=== PATIENT | male | born 1995 | race Two or more races ===

== ENCOUNTER 2025-02-02 12:16 | Inpatient (IN) | payer MEDICAID, OTHER ==
[~2025-02-02] VITALS: Ht 162.6 cm; Wt 65.9 kg
--- NOTE | 2025-02-02 13:19 | ED.PDOC ---
History of Present Illness HPI Comments 29-year-old male who is [place]ian-speaking presents to the ER chief complaint of a GI bleed. Patient reports that he was a heavy alcohol user currently in alcohol recovery program. Patient states on having bright red stool this morning. Patient states that there was a lot. Denies any other symptoms at this time. Denies chills, fever, N/V/D, SOB, CP. No other associated symptoms, modifiers, recent injuries or sick contacts present at this time. Chief Complaint: GI Bleed Time Seen by MD: 13:15 Reviewed Notes: Nurses Notes, Medications, Allergies Allergies: Coded Allergies: NO KNOWN ALLERGIES (Unverified , 02/02/25) Information Source: Patient Mode of Arrival: Ambulatory Severity: Moderate Timing: Hours Duration: Since onset, Hours Prehospital treatment: None Past Medical History PAST MEDICAL HISTORY: Denies Surgical History: Denies all surgeries Family History Family History: Reviewed,noncontributory to illness, Unknown Social History Smoker: Non-Smoker Alcohol: Sober Drugs: Denies Drug Use Lives In: Home Constitutional: denies: chills, diaphoresis, fatigue, fever, malaise, sweats, weakness, others EENTM: denies: blurred vision, double vision, ear bleeding, ear discharge, ear drainage, ear pain, ear ringing, eye pain, eye redness, hearing loss, mouth pain, mouth swelling, nasal discharge, nose bleeding, nose congestion, nose pain, photophobia, tearing, throat pain, throat swelling, voice changes, others Respiratory: denies: cough, hemoptysis, orthopnea, SOB at rest, shortness of breath, SOB with excertion, stridor, wheezing, others Cardiovascular: denies: chest pain, dizzy spells, diaphoresis, Dyspnea on exertion, edema, irregular heart beat, left arm pain, lightheadedness, palpitations, PND, syncope, others Gastrointestinal: reports: rectal bleeding (Bright red); denies: abdomen distended, abdominal pain, blood streaked bowels, constipated, diarrhea, dysphagia, difficulty swallowing, hematemesis, melena, nausea, poor appetite, poor fluid intake, rectal pain, vomiting, others Genitourinary: denies: burning, dysuria, flank pain, frequency, hematuria, incontinence, penile discharge, penile sore, pain, testicle pain, testicle swell ing, urgency, others Neurological: denies: dizziness, fainting, headache, left sided numbness, left sided weakness, numbness, paresthesia, pre-existing deficit, right sided numbness, right sided weakness, seizure, speech problems, tingling, tremors, weakness, others Musculoskeletal: denies: back pain, gout, joint pain, joint swelling, muscle pain, muscle stiffness, neck pain, others Integumetry: denies: bruises, change in color, change in hair/nails, dryness, laceration, lesions, lumps, rash, wounds, others Allergic/Immunocompromised: denies: Difficulty Healing, Frequent Infections, Hives, Itching, others Hematologic/Lymphatic: denies: anemia, blood clots, easy bleeding, easy bruising, swollen glands, others Endocrine: denies: excessive hunger, excessive sweating, excessive thirst, excessive urination, flushing, intolerance to cold, intolerance to heat, unexplained weight gain, unexplained weight loss, others Psychiatric: denies: anxiety, bipolar disorder, depression, hopeless, panic disorder, schizophrenia, sleepless, suicidal, others All Other Systems: Reviewed and Negative Physical Exam General Appearance: Moderate Distress, Normal HEENT: Normal ENT Inspection, Pharynx Normal, TMs Normal Neck: Full Range of Motion, Non-Tender, Normal, Normal Inspection Respiratory: Chest Non-Tender, Lungs Clear, No Accessory Muscle Use, No Respiratory Distress, Normal Breath Sounds Cardiovascular: No Edema, No JVD, No Murmur, No Gallop, Normal Peripheral Pulses, Regular Rate/Rhythm Breast Exam: Deferred Gastrointestinal: No Organomegaly, Non Tender, No Pulsatile Mass, Normal Bowel Sounds, Soft Genitalia: Deferred Pelvic: Deferred Rectal: Deferred Extremities: No calf tenderness, Normal capillary refill, Normal inspection, Normal range of motion, Non-tender, No pedal edema Musculoskeletal : Apperance: Normal Neurologic: Alert, natural resources extension educator II-XII nml as Tested, No Motor Deficits, Normal Affect, Normal Mood, No Sensory Deficits Cerebellar Function: Normal Reflexes: Normal Skin: Dry, Normal Color, Warm Peripheral Pulses: 3+ Radial (R), 3+ Radial (L) Lymphatic: No Adenopathy Was a procedure done? Was a procedure done?: No Differential Dx Considerations may include: Anemia Electrolyte imbalance X-Ray, Labs, Meds, VS Vital Signs Date Time Temp Pulse Resp B/P (MAP) Pulse Ox O2 Delivery O2 Flow Rate FiO2 02/02/25 15:23 98.0 74 18 122/67 (85) 98 98.0 02/02/25 12:18 98.2 83 15 134/66 98 98.2 Lab Test 02/02/25 13:45 Range/Units White Blood Count 6.8 4.4-10.8 10^3/uL Red Blood Count 5.77 4.5-5.90 10^6/uL Hemoglobin 17.6 H 13.5-17.5 g/dL Hematocrit 51.0 41.0-53.0 % Mean Corpuscular Volume 88.4 80.0-100.0 fL Mean Corpuscular Hemoglobin 30.6 28.0-32.0 pg Mean Corpuscular Hemoglobin Concent 34.6 32.0-36.0 g/dL Red Cell Distribution Width 12.8 11.8-14.3 % Platelet Count 311 140-450 10^3/uL Mean Platelet Volume 7.9 6.9-10.8 fL Neutrophils (%) (Auto) 57.2 37.0-80.0 % Lymphocytes (%) (Auto) 30.1 10.0-50.0 % Monocytes (%) (Auto) 10.5 0.0-12.0 % Eosinophils (%) (Auto) 1.4 0.0-7.0 % Basophils (%) (Auto) 0.8 0.0-2.0 % Neutrophils # (Auto) 3.9 1.6-8.6 10 ^3/uL Lymphocytes # (Auto) 2.0 0.4-5.4 10 ^3/uL Monocytes # (Auto) 0.7 0-1.3 10 ^3/uL Eosinophils # (Auto) 0.1 0-0.8 10 ^3/uL Basophils # (Auto) 0.1 0-0.2 10 ^3/uL Nucleated Red Blood Cells 0.1 % Sodium Level 141 136-145 mmol/L Potassium Level 4.5 3.5-5.1 mmol/L Chloride Level 103 98-107 mmol/L Carbon Dioxide Level 30 20-31 mmol/L Anion Gap 8 5-15 Blood Urea Nitrogen 10 9-23 mg/dL Creatinine 0.93 0.700-1.30 mg/dL Glomerular Filtration Rate Calc 115 >90 mL/min BUN/Creatinine Ratio 10.8 10.0-20.0 Serum Glucose 93 74-106 mg/dL Calcium Level 10.1 8.7-10.4 mg/dL Current Medications Medications (Trade) Dose Ordered Sig/Lokesh Route Start Time Stop Time Status Last Admin Sodium Chloride 1,000 ml @ 1,000 mls/hr Q1H ONCE IV 02/02/25 13:30 02/02/25 14:29 DC 02/02/25 14:52 Sodium Chloride 1,000 ml @ 150 mls/hr Q6H40M ONCE IV 02/02/25 13:30 02/02/25 20:09 02/02/25 14:53 Patient alert. Complaining of bleeding per rectum. Vitals stable. Answering questions. Establish intravenous access. Was given fluids. WBC within normal limits. Hematocrit within normal limits. Explained to the patient. Continue monitoring. Time of 1ST Reevaluation: 13:45 Reevaluation 1ST: Unchanged Patient Education/Counseling: Diagnosis, Treatment, Prognosis Family Education/Counseling: No Family Present SEPSIS Sepsis Screen Date sepsis recognized/suspect: Feb 02, 2025 Time Sepsis recognized/suspect: 0 Recent Procedure: No On Antibiotic Therapy: No Respiratory Rate >20: No Heart Rate >90: No Temp<36 C (96.8 F) or >38.3 C: No SBP <90 or MAP <65 mmHG: No New Acute Mental Status Change: No Is the patient on CPAP, BIPAP,: No Physician Orders Urinalysis (02/02/25 13:26) Sodium Chloride 0.9% (02/02/25 13:30) Vital Signs Date Time Temp Pulse Resp B/P (MAP) Pulse Ox O2 Delivery O2 Flow Rate FiO2 02/02/25 15:23 98.0 74 18 122/67 (85) 98 98.0 02/02/25 12:18 98.2 83 15 134/66 98 98.2 Laboratory Tests Test 02/02/25 13:45 White Blood Count 6.8 10^3/uL (4.4-10.8) Medications Medications Dose Ordered Sig/Lokesh Route Start Time Stop Time Status Last Admin Dose Admin Sodium Chloride 1,000 ml @ 150 mls/hr Q6H40M ONCE IV 02/02/25 13:30 02/02/25 20:09 02/02/25 14:53 Sodium Chloride 1,000 ml @ 1,000 mls/hr Q1H ONCE IV 02/02/25 13:30 02/02/25 14:29 DC 02/02/25 14:52 Departure 1 Departure Time of Disposition: 15:48 Impression: Primary Impression: GI bleed Qualified Codes: K92.2 - Gastrointestinal hemorrhage, unspecified Disposition: ADMITTED INPATIENT Admit to: Med Surg Condition: Guarded Critical Care Note Critical Care Time?: No Stability Stability form required: No Heart Score Heart Score: Heart Score Response (Comments) Value History N/A 0 EKG N/A 0 Age N/A 0 Risk Factors N/A 0 Troponin N/A 0 Total 0 I personally scribed for RISA LALA MD ([email or web address]) on 02/02/25 at 13:19. Electronically submitted by Abe Fink ([email or web address]). RISA LALA MD Feb 02, 2025 13:19
[2025-02-02 14:20] LABS: Hematocrit 51.0 % (41.0-53.0); Hemoglobin 17.6 g/dL (13.5-17.5); Mean Corpuscular Hemoglobin 30.6 pg (28.0-32.0); Mean Corpuscular Volume 88.4 fL (80.0-100.0); Nucleated Red Blood Cells % 0.1 %
[2025-02-02 14:27] LABS: Chloride 103 mmol/L (98-107); Potassium 4.5 mmol/L (3.5-5.1); Sodium 141 mmol/L (136-145)
[2025-02-02 14:28] LABS: Anion Gap 8 (5-15); Carbon Dioxide 30 mmol/L (20-31)
[2025-02-02 14:29] LABS: Calcium 10.1 mg/dL (8.7-10.4)
[2025-02-02 14:33] LABS: Glucose 93 mg/dL (74-106)
[2025-02-02 14:34] LABS: BUN/Creatinine Ratio 10.8 (10.0-20.0); Blood Urea Nitrogen 10 mg/dL (9-23)
[2025-02-02] MEDS: SODIUM CHLORIDE 0.9% 1,000 ML IV ONE ×2 (14:52→14:53)
[2025-02-02 16:10] LABS: Urine Protein, UAD Negative (Negative)
--- NOTE | 2025-02-02 16:27 | DVHHP2 ---
History of Present Illness History of Present Illness Patient is 29 years old male with a history of severe alcoholism, on recommended program, last drinking 3 weeks before not on any medication came with a complaint of per rectal bleeding. As per patient he started having per rectal bleeding after bowel movement today which happened twice around 10:00 a.m. in the morning today. Patient reported amphetamine improved had blood also was dribbling after popping. Patient also reported having abdominal pain for last 2 days, gradual onset, 01/28, no aggravating or relieving factor. Patient reported also having vomiting once, no blood, watery content. On further inquiry patient also reported dysuria for last 2 weeks. Patient denied any fever, acute joint pain or swelling, chest pain no shortness of breaths. Initial lab workup revealed hemoglobin 17.6. Urinalysis negative for UTI. PMH-history of alcohol abuse PSH- none Family history done Allergy- NKDA Personal History/ Social History- smokes 2-3 cigarettes per day, ex alcoholic, last alcohol drink 3 weeks before, occasional use marijuana, last use couple of weeks before. Review of Systems Review of Systems Cardiovascular- deny acute chest pain or shortness of breath or cough or palpitation Respiratory denies cough or short of breath or wheezing Musculoskeletal-denies acute joint swelling or tenderness or redness Neurological- denies acute dysarthria, dysphagia, change in vision Psychiatry- denies depression or SI or HI Skin- denies acute rash or purpura Allergies: Coded Allergies: NO KNOWN ALLERGIES (Unverified , 02/02/25) Medications Current Medications Medications Dose Ordered Sig/Lokesh Route Start Time Stop Time Status Last Admin Dose Admin Sodium Chloride 1,000 ml @ 120 mls/hr Q8H20M IV 02/02/25 16:30 UNV Exam Vital Signs Vital Signs Date Time Temp Pulse Resp B/P (MAP) Pulse Ox O2 Delivery O2 Flow Rate FiO2 02/02/25 15:23 98.0 74 18 122/67 (85) 98 98.0 Exam General examination- HEENT- PEERLA, no acute nasal discharge Cardiovascular- S1-S2 audible, rate and rhythm regular, no murmur Respiratory- CTAB, no wheeze or rhonchi Gastrointestinal-nontender, bowel sound+. Nondistended Musculoskeletal-no acute joint swelling or tenderness or redness Digital rectal examination was attempted in presence of delon Ferrell, no external hemorrhoids, could not complete the AKASH due to patient feeling pain. Lower extremity- no leg edema Neurological- cranial nerves intact, no acute dysarthria or dysphagia Psychiatry- denies depression or SI or HI Skin- no acute rash or purpura Labs/Xrays Labs Test 02/02/25 15:54 02/02/25 13:45 Range/Units Urine Color Light-yellow Yellow Urine Clarity Clear Clear Urine pH 7.5 5.0-9.0 Urine Specific [place] 1.015 1.001-1.035 Urine Protein Negative Negative Urine Ketones Negative Negative Urine Blood Negative Negative /uL Urine Nitrite Negative Negative Urine Bilirubin Negative Negative Urine Urobilinogen Normal Negative mg/dL Urine Leukocyte Esterase Negative Negative /uL Urine RBC 1 0 - 3 /hpf Urine Microscopic WBC < 1 0-3 /HPF Urine Squamous Epithelial Cells None seen <5 /hpf Urine Bacteria None seen None Seen /hpf Urine Glucose Normal Normal mg/dL White Blood Count 6.8 4.4-10.8 10^3/uL Red Blood Count 5.77 4.5-5.90 10^6/uL Hemoglobin 17.6 H 13.5-17.5 g/dL Hematocrit 51.0 41.0-53.0 % Mean Corpuscular Volume 88.4 80.0-100.0 fL Mean Corpuscular Hemoglobin 30.6 28.0-32.0 pg Mean Corpuscular Hemoglobin Concent 34.6 32.0-36.0 g/dL Red Cell Distribution Width 12.8 11.8-14.3 % Platelet Count 311 140-450 10^3/uL Mean Platelet Volume 7.9 6.9-10.8 fL Neutrophils (%) (Auto) 57.2 37.0-80.0 % Lymphocytes (%) (Auto) 30.1 10.0-50.0 % Monocytes (%) (Auto) 10.5 0.0-12.0 % Eosinophils (%) (Auto) 1.4 0.0-7.0 % Basophils (%) (Auto) 0.8 0.0-2.0 % Neutrophils # (Auto) 3.9 1.6-8.6 10 ^3/uL Lymphocytes # (Auto) 2.0 0.4-5.4 10 ^3/uL Monocytes # (Auto) 0.7 0-1.3 10 ^3/uL Eosinophils # (Auto) 0.1 0-0.8 10 ^3/uL Basophils # (Auto) 0.1 0-0.2 10 ^3/uL Nucleated Red Blood Cells 0.1 % Sodium Level 141 136-145 mmol/L Potassium Level 4.5 3.5-5.1 mmol/L Chloride Level 103 98-107 mmol/L Carbon Dioxide Level 30 20-31 mmol/L Anion Gap 8 5-15 Blood Urea Nitrogen 10 9-23 mg/dL Creatinine 0.93 0.700-1.30 mg/dL Glomerular Filtration Rate Calc 115 >90 mL/min BUN/Creatinine Ratio 10.8 10.0-20.0 Serum Glucose 93 74-106 mg/dL Calcium Level 10.1 8.7-10.4 mg/dL SEPSIS Sepsis Screen Date sepsis recognized/suspect: Feb 02, 2025 Time Sepsis recognized/suspect: 1219 Recent Procedure: No On Antibiotic Therapy: No Respiratory Rate >20: No Heart Rate >90: No Temp<36 C (96.8 F) or >38.3 C: No SBP <90 or MAP <65 mmHG: No New Acute Mental Status Change: No Is the patient on CPAP, BIPAP,: No Physician Orders Sodium Chloride 0.9% (02/02/25 13:30) Admit (02/02/25 16:17) Code Status (02/02/25 16:17) Sodium Chloride 0.9% (02/02/25 16:30) Complete Blood Count (02/03/25 04:00) Comprehensive Metabolic Panel (02/03/25 04:00) Npo (Nothing By Mouth) Diet (02/02/25 Dinner) Notify Md Of Changes From Base (02/02/25 16:17) Vital Signs Date Time Temp Pulse Resp B/P (MAP) Pulse Ox O2 Delivery O2 Flow Rate FiO2 02/02/25 15:23 98.0 74 18 122/67 (85) 98 98.0 02/02/25 12:18 98.2 83 15 134/66 98 98.2 Laboratory Tests Test 02/02/25 13:45 White Blood Count 6.8 10^3/uL (4.4-10.8) Medications Medications Dose Ordered Sig/Lokesh Route Start Time Stop Time Status Last Admin Dose Admin Sodium Chloride 1,000 ml @ 150 mls/hr Q6H40M ONCE IV 02/02/25 13:30 02/02/25 20:09 02/02/25 14:53 150 MLS/HR Sodium Chloride 1,000 ml @ 1,000 mls/hr Q1H ONCE IV 02/02/25 13:30 02/02/25 14:29 DC 02/02/25 14:52 1,000 MLS/HR Assessment/Plan Assessment/Plan Assessment and plan # acute GI bleeding under evaluation # rectal bleeding # suspected gastroenteritis/colitis # transaminitis -NPO -ordered IV fluid -ordered pantoprazole -ordered ceftriaxone and metronidazole -ordered CT abdomen and pelvis with contrast both oral and IV ordered -ordered hepatic panel -ordered GI consult # dysuria under evaluation -ordered urinalysis -continue current antibiotic # history of alcoholism Ordered blood alcohol level # history of substance abuse -ordered UDS Goals of care, Code status full code ; discussed with >15 minutes PUD prophylaxis: Pantoprazole DVT prophylaxis: Patient ambulating Plan discussed with Dr. Molina , nursing staff, Total time spent on patient evaluation, chart review, assessment and plan, discussion discussion >35 minutes Plan discussed with: Patient, Other (RN) My Orders Orders - ANGELES SMALL Procedure Category Date Status Time Admit ADMIT 02/02/25 Transmitted 16:17 Code Status CODE 02/02/25 Transmitted 16:17 Sodium Chloride 0.9% PHA 02/02/25 Logged 16:30 Complete Blood Count LAB 02/03/25 Verified 04:00 Comprehensive LAB 02/03/25 Verified Metabolic Panel 04:00 Npo (Nothing By DIET 02/02/25 Transmitted Mouth) Diet Dinner Notify Of Changes HOLLY 02/02/25 In Process From Base 16:17 Date of Service: Feb 02, 2025 Billing Provider: XU MOLINA MD Common Visit Codes: 04013-VFKOHIP INP/OBS CARE (HIGH) Secondary Visit Codes: 82680-[id number] CARE PLAN 30 MINUTES ANGELES SMALL Feb 02, 2025 16:27
[2025-02-02] MEDS: LACTATED RINGER'S 1,000 ML IV ONE (16:30)
[2025-02-02] MEDS ORDERED: SODIUM CHLORIDE 0.9% 1,000 ML IV SCH (16:30)
--- NOTE | 2025-02-02 16:57 | DVH ---
CHEST RADIOGRAPH Indication: Rule out pneumonia Technique: XY CHEST XRAY 1 VIEW Comparison: None FINDINGS: The cardiac silhouette is unremarkable. The lungs demonstrate no pulmonary airspace consolidation. Th e pulmonary vasculature is unremarkable. There is no pleural effusion. There is no pneumothorax. IMPRESSION: No pulmonary airspace consolidation.
[2025-02-02 17:05] LABS: INR 0.97 (0.9-1.15); Partial Thromboplastin Time 29.7 SEC (24.5-34.5); Prothrombin Time 10.3 sec (9.3-11.8)
[2025-02-02] MEDS: OMNIPAQUE 12mg/ml 500ml ORAL SOLUTION PO ONE (17:14)
[2025-02-02 17:25] LABS: Albumin 4.6 g/dL (3.2-4.8); Bilirubin, Total 0.4 mg/dL (0.2-1.0); Total Protein 7.4 g/dL (5.7-8.2)
[2025-02-02 18:05] LABS: Alanine Aminotransferase 116 U/L (7-40); Alkaline Phosphatase 147 U/L (46-116); Bilirubin, Direct < 0.1 mg/dL (<0.3)
[2025-02-02 18:05] LABS: Amphetamine Screen, Urine Neg (NEGATIVE); Barbiturate Scree,Urine Neg (NEGATIVE); Benzodiazephine Screen, Urine Neg (NEGATIVE); Cannabinoid Screen, Urine Neg (NEGATIVE); Cocaine Screen, Urine Neg (NEGATIVE); Opiate Scree,Urine Neg (NEGATIVE); Phencyclidine Screen, Urine Neg (NEGATIVE)
[2025-02-02 21:00] VITALS: BP 118/75; PULSE 70; RESP 15; TEMP 98.2; O2SAT 97
[2025-02-02 21:04] VITALS: BP 118/75; PULSE 68; PULSE 70; RESP 14; RESP 15; TEMP 98.2; O2SAT 97; O2SAT 98
[2025-02-02] MEDS: IOHEXOL 300 MG/ML 100ML BOTTLE IJ ONE (21:10)
[2025-02-02] MEDS: PANTOPRAZOLE 40 MG/10 ML VIAL INJ IV SCH (22:10)
--- NOTE | 2025-02-02 22:34 | DVH ---
CLINICAL HISTORY: GI bleeding TECHNIQUE: CT of the abdomen and pelvis was performed with intravenous contrast. 100 mL Omnipaque 300 injected 500 mL omnipaque 350 ingested orally. This exam was performed according to our departmental dose optimization program. Up-to-date CT equipment and radiation dose reduction techniques are utili zed as appropriate. 7.46 CTDIVol: 7.46 mGy DLP: 453.20 mGy-cm WID: COMPARISON: None FINDINGS: Lower Thorax: Unremarkable. Liver and Biliary system: Mild hepatomegaly measuring 20 cm craniocaudal. There is mild hepatic steat osis. No discrete hepatic lesion. Major portal veins are patent. Gallbladder is normal caliber. Ther e is no biliary ductal dilatation. Spleen: Unremarkable. Adrenal Glands and Kidneys: Normal adrenal glands. Asymmetric atrophy and smaller size of the right k idney with multifocal right renal cortical scarring. There is no hydronephrosis or nephrolithiasis. T iny hypodensity in the upper pole left kidney too small to characterize though may reflect a cyst. Pancreas and Retroperitoneum: Unremarkable. Aorta and Major Vessels: Unremarkable. Bowel, Mesentery and Peritoneal space: Normal caliber small and large bowel. There is contrast opacif ication of predominantly right abdominal small bowel loops. No free intraperitoneal air or fluid geovanna ection. Mild wall thickening of the rectum. Pelvis: Unremarkable. Abdominal wall and Osseous Structures: Tiny sclerotic foci in the proximal femurs and pelvis likely b [place]. No destructive osseous lesion. IMPRESSION: 1. Mild wall thickening of the rectum which may be in part due to underdistention versus mild proctit is. 2. No bowel obstruction, fluid collection, or free air. 3. Mild hepatomegaly with mild hepatic steatosis. 4. Asymmetric atrophy of the right kidney with multifocal right renal cortical scarring.
[2025-02-02 23:28] LABS: Hematocrit 44.2 % (41.0-53.0); Hemoglobin 15.5 g/dL (13.5-17.5)
[2025-02-03] VITALS (9 sets, daily range): BP systolic 94–109; BP diastolic 55–70; PULSE 52–84; RESP 14–18; TEMP 97.3–98.6; O2SAT 92–97
[2025-02-03 05:48] LABS: Hematocrit 46.3 % (41.0-53.0); Hemoglobin 16.2 g/dL (13.5-17.5); Mean Corpuscular Hemoglobin 30.7 pg (28.0-32.0); Mean Corpuscular Volume 87.7 fL (80.0-100.0); Nucleated Red Blood Cells % 0.0 %
[2025-02-03] MEDS: SODIUM CHLORIDE 0.9% 500 ML IV ONE (05:52)
[2025-02-03 06:09] LABS: Albumin 3.9 g/dL (3.2-4.8); Alkaline Phosphatase 116 U/L (46-116); Anion Gap 10 (5-15); BUN/Creatinine Ratio 8.6 (10.0-20.0); Calcium 9.4 mg/dL (8.7-10.4); Carbon Dioxide 27 mmol/L (20-31); Chloride 105 mmol/L (98-107); Glucose 93 mg/dL (74-106); Potassium 3.7 mmol/L (3.5-5.1); Sodium 142 mmol/L (136-145); Total Protein 6.4 g/dL (5.7-8.2)
[2025-02-03 06:10] LABS: Alanine Aminotransferase 88 U/L (7-40); Bilirubin, Total 0.8 mg/dL (0.2-1.0); Blood Urea Nitrogen 7 mg/dL (9-23)
--- NOTE | 2025-02-03 08:59 | DVHPNRES ---
Progress Note Date Seen: Feb 03, 2025 Resident Creating Document: ANGELES SMALL RESIDENT Medical Necessity Reason Pt with a Central, PICC or Fol: No Subjective Review of Systems Patient is 29 years old male with a history of severe alcoholism, on recommended program, last drinking 3 weeks before not on any medication came with a complaint of per rectal bleeding. As per patient he started having per rectal bleeding after bowel movement today which happened twice around 10:00 a.m. in the morning today. Patient reported amphetamine improved had blood also was dribbling after popping. Patient also reported having abdominal pain for last 2 days, gradual onset, 01/28, no aggravating or relieving factor. Patient reported also having vomiting once, no blood, watery content. On further inquiry patient also reported dysuria for last 2 weeks. Patient denied any fever, acute joint pain or swelling, chest pain no shortness of breaths. Initial lab workup revealed hemoglobin 17.6. AST 47, ALT 116, alkaline phosphatase 147. Vitamin-D 22.8. Urinalysis negative for UTI.CT abdomen and pelvis with contrast both oral and IV- Mild wall thickening of the rectum which may be in part due to underdistention versus mild proctitis. Mild hepatomegaly with mild hepatic steatosis. Asymmetric atrophy of the right kidney with multifocal right renal cortical scarring. -pending GI consult PMH-history of alcohol abuse PSH- none Family history done Allergy- NKDA Personal History/ Social History- smokes 2-3 cigarettes per day, ex alcoholic, last alcohol drink 3 weeks before, occasional use marijuana, last use couple of weeks before. Objective vital signs Vital Sign Date Time Temp Pulse Resp B/P (MAP) Pulse Ox O2 Delivery O2 Flow Rate FiO2 02/03/25 05:00 98.2 84 16 103/61 (75) 95 98.2 02/02/25 21:04 Room Air* 0 21 Total Intake and Output 02/02/25 02/02/25 02/03/25 15:00 23:00 07:00 Intake Total 3150 ml 100 ml Balance 3150 ml 100 ml medications Current Medications Medications Dose Ordered Sig/Lokesh Route Start Time Stop Time Status Last Admin Dose Admin Ceftriaxone Sodium 50 ml @ 100 mls/hr DAILY@09 IV 02/02/25 16:45 02/03/25 08:56 100 MLS/HR Metronidazole 100 ml @ 100 mls/hr Q8HR IV 02/02/25 16:45 02/03/25 05:50 100 MLS/HR Pantoprazole Sodium 40 mg DAILY IV 02/03/25 10:00 UNV Examination General examination--awake, alert, oriented HEENT- PEERLA, no acute nasal discharge Cardiovascular- S1-S2 audible, rate and rhythm regular, no murmur Respiratory- CTAB, no wheeze or rhonchi Gastrointestinal-nontender, bowel sound+. Nondistended Musculoskeletal-no acute joint swelling or tenderness or redness Digital rectal examination was attempted in presence of delon Ferrell, no external hemorrhoids, could not complete the AKASH due to patient feeling pain. Lower extremity- no leg edema Neurological- cranial nerves intact, no acute dysarthria or dysphagia Psychiatry- denies depression or SI or HI Skin- no acute rash or purpura laboratory and microbiology Laboratory Tests 02/03/25 05:11 Test 02/03/25 05:11 Range/Units Serum Glucose 93 74-106 mg/dL Microbiology Date/Time Source Procedure Growth Status 02/02/25 15:54 Voided Urine Urine Culture - Preliminary Resulted Problem List/Assessment/Plan Problem List/Assessment/Plan Assessment and plan # acute GI bleeding likely due to proctitis # rectal bleeding # suspected gastroenteritis/colitis # hepatomegaly with hepatic steatosis # transaminitis -advance diet to clear liquid -continue eftriaxone and metronidazole as prescribed -CT abdomen and pelvis with contrast both oral and IV- Mild wall thickening of the rectum which may be in part due to underdistention versus mild proctitis. Mild hepatomegaly with mild hepatic steatosis. Asymmetric atrophy of the right kidney with multifocal right renal cortical scarring. -pending GI consult # dysuria - urinalysis negative for UTI -continue current antibiotic # Asymmetric atrophy of the right kidney with multifocal right renal cortical scarrin -please follow up with the primary care physician for further evaluation and care as outlined # history of alcoholism Ordered blood alcohol level # history of substance abuse - UDS negative Goals of care, Code status full code ; discussed with >15 minutes PUD prophylaxis: Pantoprazole DVT prophylaxis: Patient ambulating Plan discussed with Dr. Mix , nursing staff, Total time spent on patient evaluation, chart review, assessment and plan, discussion discussion >35 minutes Plan discussed with: Patient, Other (RN) Plan discussed with: Patient, Other (RN) My Orders My Orders Orders - ANGELES SMALL Procedure Category Date Status Time Admit ADMIT 02/02/25 Transmitted 16:17 Code Status CODE 02/02/25 Transmitted 16:17 Notify Of Changes HOLLY 02/02/25 In Process From Base 16:17 2 Large Bore Ivs HOLLY 02/02/25 In Process (20mg Or Larg 16:27 Stool Occult Blood LAB 02/02/25 Logged 16:27 Chest Xray 1 View XY 02/02/25 Resulted 16:29 Electrocardiogram EKG 02/02/25 Logged With Magnet 16:29 Ceftriaxone 1gm/50ml PHA 02/02/25 In Process (Rocephin) 16:45 Clostridium Difficile REINA 02/02/25 Uncollected Toxin 16:41 Stool Bacterial REINA 02/02/25 Uncollected Culture 16:41 Stool Wbc LAB 02/02/25 Logged 16:41 Ova & Parasite Exam REINA 02/02/25 Uncollected 16:41 Metronidazole PHA 02/02/25 In Process 500mg/100ml (Flagyl 16:45 Urine Bacterial REINA 02/02/25 In Process Culture 16:52 Acute Hepatitis Panel LAB 02/02/25 In Process 16:54 Ct Abd Pelvis W CT 02/02/25 Resulted Con-Oral & Iv 16:56 * Gi D[facility] Food Production Supervisor CONS 02/02/25 Transmitted 16:57 Communication Order ORDERS 02/03/25 Transmitted 07:01 Clear Liq Diet DIET 02/03/25 Transmitted Breakfast Pantoprazole PHA 02/03/25 Logged (Protonix) 10:00 Date of Service: Feb 03, 2025 Billing Provider: ANGELES SMALL MOHAMMED RESIDENT Feb 03, 2025 08:59
[2025-02-03] MEDS: ERGOCALCIFEROL 50,000 UNIT(1.25MG) CAP PO SCH (13:53)
[2025-02-03] MEDS: THIAMINE 100mg/ml INJ (200mg/2ml VIAL) IV ONE (13:53)
--- NOTE | 2025-02-03 14:30 | DVHINCON2 ---
GI Consult Consult Note GI consult note Date of Consultation: 02/03/2025 Chief Complaint: GI bleed Referring Physician: Dr. Francis H&P: 29-year-old male with history of severe alcoholism admitted with complains of rectal bleeding. Patient admits to having two episodes of this with lot of bleeding. No bowel movement today. Patient is complaining of lower abdominal pain. Patient admits to having similar symptoms two weeks ago with three episodes of bleeding. Also has nausea and vomiting yesterday. Denies history of GERD. Patient admits to heavy alcohol use quit three weeks ago. Occasional marijuana use. Amphetamine use also. No colonoscopy in past. Denies blood thinners Past Medical History: Alcohol use Past Surgical History: Denies Social History: smokes 2-3 cigarettes per day, ex alcoholic, last alcohol drink 3 weeks before, occasional use marijuana, last use couple of weeks before. Family History: Noncontributory Review of Systems: Constitutional: no fever, chill, weight loss HEENT: no eye pain, no hearing loss, no oral lesion, no scleral icterus Heart: no chest pain, no chest pressure Lung: no cough, no dyspnea with exertion Abdomen: see HPI Physical exam: General: NAD, AAOX3 Chest: lung pierre clear to auscultation Heart: RRR, no murmur Abdomen: non-distended, [id number] lower abdominal tenderness to palpation, +BS Labs: Test 02/03/25 05:11 Range/Units Serum Glucose 93 74-106 mg/dL Microbiology Date/Time Source Procedure Growth Status 02/02/25 15:54 Voided Urine Urine Culture - Preliminary Resulted Imaging: CT abdomen pelvis IMPRESSION: 1. Mild wall thickening of the rectum which may be in part due to underdistention versus mild proctitis. 2. No bowel obstruction, fluid collection, or free air. 3. Mild hepatomegaly with mild hepatic steatosis. 4. Asymmetric atrophy of the right kidney with multifocal right renal cortical scarring. Assessment: GI bleed Possible proctitis/colitis Hepatomegaly with hepatic steatosis Transaminitis History of heavy alcohol use Plan: Discussed with Dr. Cotto - Pt will be scheduled for colonoscopy tomorrow 02/04/2025. Pt was informed of the risks (bleeding, infection, perforation, reaction to sedation medications and cardiopulmonary arrest) and benefit and is agreeable to undergo the procedures. IV antibiotic Monitor lab Plan discussed with patient and RN Thank you for this consult Date of Service: Feb 03, 2025 Billing Provider: CASTILLO BLUE Common Visit Codes: CONSULT ONLY Consultation Codes: [id number] CONSULT <60MIN CASTILLO BLUE Feb 03, 2025 14:30
[2025-02-03] MEDS: GOLYTELY 4L KIT PO ONE (15:44)
[2025-02-04 01:00] VITALS: BP 101/65; PULSE 65; RESP 16; TEMP 98.2; O2SAT 97
[2025-02-04 05:00] VITALS: BP 110/80; PULSE 70; RESP 18; TEMP 98.1; O2SAT 97
[2025-02-04] MEDS: MAGNESIUM CITRATE SOLUTION 300 ML BTL PO ONE (05:26)
[2025-02-04 05:41] LABS: Hematocrit 46.5 % (41.0-53.0); Hemoglobin 16.2 g/dL (13.5-17.5); Mean Corpuscular Hemoglobin 30.7 pg (28.0-32.0); Mean Corpuscular Volume 87.9 fL (80.0-100.0); Nucleated Red Blood Cells % 0.2 %
[2025-02-04 05:52] LABS: Albumin 3.9 g/dL (3.2-4.8); Alkaline Phosphatase 111 U/L (46-116); Anion Gap 10 (5-15); BUN/Creatinine Ratio 6.4 (10.0-20.0); Bilirubin, Total 0.8 mg/dL (0.2-1.0); Calcium 9.2 mg/dL (8.7-10.4); Carbon Dioxide 29 mmol/L (20-31); Chloride 104 mmol/L (98-107); Glucose 87 mg/dL (74-106); Potassium 3.8 mmol/L (3.5-5.1); Sodium 143 mmol/L (136-145); Total Protein 6.6 g/dL (5.7-8.2)
[2025-02-04] MEDS: GOLYTELY 4L KIT PO ONE (06:00)
[2025-02-04 06:01] LABS: Alanine Aminotransferase 76 U/L (7-40); Blood Urea Nitrogen 6 mg/dL (9-23)
[2025-02-04 08:00] VITALS: PULSE 77; RESP 18; O2SAT 96
[2025-02-04 08:19] VITALS: BP 111/68; PULSE 70; RESP 18; TEMP 97.8; O2SAT 96
[2025-02-04] MEDS ORDERED: MIDAZOLAM HCL 2MG/2ML 2ml VIAL (1mg/ml) ONE (09:30)
[2025-02-04] MEDS ORDERED: PROPOFOL 10 MG/ML 20 ML IV ONE (09:30)
[2025-02-04 10:05] VITALS: PULSE 100; RESP 20
--- NOTE | 2025-02-04 10:11 | DVHOP2 ---
Operative Report DATE OF OPERATION: 02/04/25 PROCEDURE: Diagnostic Colonoscopy. PREOPERATIVE INDICATION: The patient is a 29 -year-old male undergoing colonoscopy for evaluation of recurrent rectal bleeding POSTOPERATIVE DIAGNOSES: 1. Trace to 1+ internal hemorrhoids otherwise essentially completely normal colonoscopy examination up to the terminal ileum Patient had a good prep and there was no evidence of colitis or fresh or old blood in the colon all the distal terminal ileum PROCEDURE PERFORMED BY: Alicia Cotto M.D. SCOPE: Olympus videocolonoscope. ASA CLASS: 2. PREOPERATIVE MEDICATIONS: Dr.Lennon Aiyana PROCEDURE IN DETAIL: After obtaining an informed consent, the patient was placed on left lateral decubitus position. He was then sedated with the above medications. A rectal examination was performed that was normal. The colonoscope was then passed through the anus into the rectosigmoid and through the descending, transverse, and ascending colon up to the cecum with visualization of the appendiceal orifice, base of the cecum and the ileocecal valve. The colonoscope was then withdrawn. The distal 5 cm of the terminal ileum were normal No polyps or masses were seen. There was no colitis or diverticulosis There was no fresh or old blood in the colon or the distal terminal ileum On retroflexion and straight on view he had trace to 1+ internal hemorrhoids The patient tolerated the procedure well without difficulty. WITHDRAWAL TIME: 6 minute QUALITY OF THE PREP: [place] Bowel Prep score: 9. COMPLICATIONS : None SPECIMENS: None DISPOSITION: Transfer back to the floor Stable PLAN: 1. Repeat colonoscopy at age 47 for routine screening 2. Resume GI soft diet advance as tolerated 3. Local anorectal hemorrhoidal care 4. Patient has been advised to DC aspirin NSAIDs smoking and alcohol 5. Outpatient follow up with me as needed if he has any ongoing recurrent GI sym ptom ALICIA COTTO MD Feb 04, 2025 10:11
--- NOTE | 2025-02-04 11:20 | DVHDSRES ---
Discharge Summary Date of Admission Resident Creating Document: ANGELES SMALL RESIDENT Feb 02, 2025 at 16:17 Date of Discharge: Feb 04, 2025 Admitting Diagnosis Acute GI bleeding/rectal bleeding Labs/Diagnostic Data: Laboratory Results Test 02/04/25 05:04 02/02/25 16:54 02/02/25 15:54 02/02/25 13:45 White Blood Count 4.9 10^3/uL (4.4-10.8) Red Blood Count 5.29 10^6/uL (4.5-5.90) Hemoglobin 16.2 g/dL (13.5-17.5) Hematocrit 46.5 % (41.0-53.0) Mean Corpuscular Volume 87.9 fL (80.0-100.0) Mean Corpuscular Hemoglobin 30.7 pg (28.0-32.0) Mean Corpuscular Hemoglobin Concent 34.9 g/dL (32.0-36.0) Red Cell Distribution Width 12.7 % (11.8-14.3) Platelet Count 267 10^3/uL (140-450) Mean Platelet Volume 7.7 fL (6.9-10.8) Neutrophils (%) (Auto) 50.2 % (37.0-80.0) Lymphocytes (%) (Auto) 36.0 % (10.0-50.0) Monocytes (%) (Auto) 10.7 % (0.0-12.0) Eosinophils (%) (Auto) 2.2 % (0.0-7.0) Basophils (%) (Auto) 0.9 % (0.0-2.0) Neutrophils # (Auto) 2.4 10 ^3/uL (1.6-8.6) Lymphocytes # (Auto) 1.8 10 ^3/uL (0.4-5.4) Monocytes # (Auto) 0.5 10 ^3/uL (0-1.3) Eosinophils # (Auto) 0.1 10 ^3/uL (0-0.8) Basophils # (Auto) 0 10 ^3/uL (0-0.2) Nucleated Red Blood Cells 0.2 % Sodium Level 143 mmol/L (136-145) Potassium Level 3.8 mmol/L (3.5-5.1) Chloride Level 104 mmol/L (98-107) Carbon Dioxide Level 29 mmol/L (20-31) Anion Gap 10 (5-15) Blood Urea Nitrogen 6 mg/dL (9-23) Creatinine 0.94 mg/dL (0.700-1.30) Glomerular Filtration Rate Calc 114 mL/min (>90) BUN/Creatinine Ratio 6.4 (10.0-20.0) Serum Glucose 87 mg/dL (74-106) Calcium Level 9.2 mg/dL (8.7-10.4) Total Bilirubin 0.8 mg/dL (0.2-1.0) Aspartate Amino Transferase (AST) 32 U/L (13-40) Alanine Aminotransferase (ALT) 76 U/L (7-40) Alkaline Phosphatase 111 U/L (46-116) Total Protein 6.6 g/dL (5.7-8.2) Albumin 3.9 g/dL (3.2-4.8) Hemoglobin A1c 5.4 % A1C (<5.7) Vitamin B12 Level 382 pg/mL (211-911) Vitamin D 25-Hydroxy 22.8 ng/mL (30.0-100) Folic Acid 17.81 ng/mL (>5.38) Urine Color Light-yellow (Yellow) Urine Clarity Clear (Clear) Urine pH 7.5 (5.0-9.0) Urine Specific [place] 1.015 (1.001-1.035) Urine Protein Negative (Negative) Urine Ketones Negative (Negative) Urine Blood Negative /uL (Negative) Urine Nitrite Negative (Negative) Urine Bilirubin Negative (Negative) Urine Urobilinogen Normal mg/dL (Negative) Urine Leukocyte Esterase Negative /uL (Negative) Urine RBC 1 /hpf (0 - 3) Urine Microscopic WBC < 1 /HPF (0-3) Urine Squamous Epithelial Cells None seen /hpf (<5) Urine Bacteria None seen /hpf (None Seen) Urine Glucose Normal mg/dL (Normal) Urine Opiates Screen Neg (NEGATIVE) Urine Fentanyl Screen Neg (NEGATIVE) Urine Barbiturates Screen Neg (NEGATIVE) Urine Phencyclidine Screen Neg (NEGATIVE) Urine Amphetamines Screen Neg (NEGATIVE) Urine Benzodiazepines Screen Neg (NEGATIVE) Urine Cocaine Screen Neg (NEGATIVE) Urine Cannabinoids Screen Neg (NEGATIVE) Prothrombin Time 10.3 sec (9.3-11.8) Prothrombin Time INR 0.97 (0.9-1.15) Activated Partial Thromboplast Time 29.7 SEC (24.5-34.5) Direct Bilirubin < 0.1 mg/dL (<0.3) Plasma/Serum Blood Alcohol < 3.0 mg/dL (<10) Other Laboratory Tests 02/04/25 05:04 Brief Hx & Hospital Course: Patient is 29 years old Arabic-speaking male with a history of severe alcoholism, on recovery program, last drinking 3 weeks before not on any medication came with a complaint of per rectal bleeding. As per patient he started having per rectal bleeding after bowel movement today which happened twice around 10:00 a.m. in the morning today. Patient reported amphetamine improved had blood also was dribbling after popping. Patient also reported having abdominal pain for last 2 days, gradual onset, 01/28, no aggravating or relieving factor. Patient reported also having vomiting once, no blood, watery content. On further inquiry patient also reported dysuria for last 2 weeks. Patient denied any fever, acute joint pain or swelling, chest pain no shortness of breaths. Initial lab workup revealed hemoglobin 17.6. AST 47, ALT 116, alkaline phosphatase 147. Vitamin-D 22.8. Urinalysis negative for UTI.CT abdomen and pelvis with contrast both oral and IV- Mild wall thickening of the rectum which may be in part due to underdistention versus mild proctitis. Mild hepatomegaly with mild hepatic steatosis. Asymmetric atrophy of the right kidney with multifocal right renal cortical scarring. Patient was treated conservatively with IV fluid and IV antibiotic ceftriaxone and metronidazole for proctitis. Patient was seen by Gastroenterology, had colonoscopy done, revealed internal hemorrhoids. Patient is being discharged home with cefpodoxime and metronidazole. Patient was advised to avoid constipation and dehydration. Patient's meds were sent to the pharmacy electronically. Patient was hemodynamically stable on discharge. Patient was advised to follow up with the discharge clinic as per schedule, with PCP in 2 weeks and also with Gastroenterology if any concerns. Physical examination on the day of discharge: General examination--awake, alert, oriented HEENT- PEERLA, no acute nasal discharge Cardiovascular- S1-S2 audible, rate and rhythm regular, no murmur Respiratory- CTAB, no wheeze or rhonchi Gastrointestinal-nontender, bowel sound+. Nondistended Musculoskeletal-no acute joint swelling or tenderness or redness Lower extremity- no leg edema Neurological- cranial nerves intact, no acute dysarthria or dysphagia Psychiatry- denies depression or SI or HI Skin- no acute rash or purpura Counseled the patient for 16 minutes about the importance of continuous abstinence from alcohol Goals of care discussed with the patient for 22 minutes; full code Nursing staff helped with translation Discussed with Dr. Gamino Operations or Procedures [address] [address] Ph: [phone] DIAGNOSTIC IMAGING Diagnostic Imaging Report : [id number] Signed PATIENT: ALDAIR CANCHOLA ACCT: [id number] UNIT: [id number] : 1995 LOC: OVERFLOW ROOM / BED: 1012-ER / A AGE / SEX: 29 / M ADM STATUS: ADM IN SERVICE 55 ORDERING PHYSICIAN: ANGELES SMALL RESIDENT PROCEDURE(s): ABPLC - CT ABD PELVIS W CON-ORAL & IV REASON: GI bleeding ORDER NUMBER(s): [id number], ACCESSION NUMBER(s): [id number] CLINICAL HISTORY: GI bleeding TECHNIQUE: CT of the abdomen and pelvis was performed with intravenous contrast. 100 mL Omnipaque 300 injected 500 mL omnipaque 350 ingested orally. This exam was performed according to our departmental dose optimization program. Up-to-date CT equipment and radiation dose reduction techniques are utilized as appropriate. 7.46 CTDIVol: 7.46 mGy DLP: 453.20 mGy-cm WID: COMPARISON: None FINDINGS: Lower Thorax: Unremarkable. Liver and Biliary system: Mild hepatomegaly measuring 20 cm craniocaudal. There is mild hepatic steatosis. No discrete hepatic lesion. Major portal veins are patent. Gallbladder is normal caliber. There is no biliary ductal dilatation. Spleen: Unremarkable. Adrenal Glands and Kidneys: Normal adrenal glands. Asymmetric atrophy and smaller size of the right kidney with multifocal right renal cortical scarring. There is no hydronephrosis or nephrolithiasis. Tiny hypodensity in the upper pole left kidney too small to characterize though may reflect a cyst. Pancreas and Retroperitoneum: Unremarkable. Aorta and Major Vessels: Unremarkable. Bowel, Mesentery and Peritoneal space: Normal caliber small and large bowel. There is contrast opacification of predominantly right abdominal small bowel loops. No free intraperitoneal air or fluid collection. Mild wall thickening of the rectum. Pelvis: Unremarkable. Abdominal wall and Osseous Structures: Tiny sclerotic foci in the proximal femurs and pelvis likely bone islands. No destructive osseous lesion. IMPRESSION: 1. Mild wall thickening of the rectum which may be in part due to underdistention versus mild proctitis. 2. No bowel obstruction, fluid collection, or free air. 3. Mild hepatomegaly with mild hepatic steatosis. 4. Asymmetric atrophy of the right kidney with multifocal right renal cortical scarring. ATED BY: ALBERT ROMERO MD DICTATED DATE/TIME: 02/02/252230 SIGNED BY: ALBERT ROMERO MD SIGNED DATE/TIME: 02/02/252230 CC: [place] [id number] Ph: [phone] DIAGNOSTIC IMAGING Diagnostic Imaging Report : [id number] Signed PATIENT: ALDAIR CANCHOLA ACCT: [id number] UNIT: [id number] : 1995 [facility]GE / SEX: 29 / M ADM STATUS: ADM IN SERVICE 28 ORDERING PHYSICIAN: ANGELES SMALL RESIDENT PROCEDURE(s): CXR1 - CHEST XRAY 1 VIEW REASON: Rule out pneumonia ORDER NUMBER(s): [id number], ACCESSION NUMBER(s): [id number] CHEST RADIOGRAPH Indication: Rule out pneumonia Technique: XY CHEST XRAY 1 VIEW Comparison: None FINDINGS: The cardiac silhouette is unremarkable. The lungs demonstrate no pulmonary airspace consolidation. The pulmonary vasculature is unremarkable. There is no pleural effusion. There is no pneumothorax. IMPRESSION: No pulmonary airspace consolidation. ATED BY: SUGAR EVGA MD DICTATED DATE/TIME: 02/02/251657 SIGNED BY: SUGAR VEGA MD SIGNED DATE/TIME: 02/02/251657 CC: Condition at Discharge: Stable Final Diagnosis/Problems List # acute GI bleeding likely due to proctitis # rectal bleeding # suspected gastroenteritis # internal hemorrhoids # hepatomegaly with hepatic steatosis # transaminitis # dysuria # Asymmetric atrophy of the right kidney with multifocal right renal cortical scarrin # history of alcoholism # history of substance abuse Discharge Disposition: Home Discharge Instruct/Medications Diet: Regular Activity: No Restrictions, As Tolerated Follow Up/Referral: Please follow up with the discharge clinic 1 week as per schedule Please follow up with the primary care physician in 2 weeks Follow up with the drying oven attendant if needed or any concern going on Medications: Cefpodoxime 200 mg p.o. b.i.d. for 5 days Metronidazole 500 mg p.o. t.i.d. for 5 days Ibuprofen 400 mg q.6h PRN as prescribed Pantoprazole 40 mg p.o. daily as prescribed Scheduled Ibuprofen (Ibuprofen), 1 TAB PO Q6HPRN Metronidazole (Metronidazole), 500 MG PO TID Pantoprazole Sodium Sesquihydr (Pantoprazole Sodium), 40 MG PO DAILY Scheduled PRN Cefpodoxime Proxetil (Cefpodoxime Proxetil), 1 TAB PO BID PRN Discharge Statement: "Patient was advised to return to the ER or call 911 if any headaches, dizziness, shortness of breath, chest pain, abdominal pain, bleeding, fevers, or worsening of medical condition. Patient was counseled about treatment plan, medications, possible side effects, patientverbalized understanding. All questions were answered to the best of my ability. This discharge took greater then 30 minutes in planning, reviewing documentation, counseling the patient, and discussing with other team members." ASSESSMENT ASSESSMENT Assessment Date of Service: Feb 04, 2025 Billing Provider: DARIUSZ GAMINO MD Common Visit Codes: 86824-FAC/OBS DISCH DAY >30min Secondary Visit Codes: 00709-[id number] CHNG SMOKING >10MIN (16 minutes on continuing alcohol cessation), 72376-[id number] CARE PLAN 30 MINUTES (22 minutes) Addendum Addendum Addendum I was physically present for the sigala portions of the service provided to patient by THE RESIDENT. I have reviewed the documentation, discussed the case with resident and agree with the resident's documentation except as noted. Also the patient's clinical case was discussed with the patient's nurse. This medical document was created using an electronic medical record system with computerized dictation system. Although this document has been carefully reviewed, there might still be some phonetic and typographical errors. These areas are purely typographical due to imperfections of the software programs, and do not reflect any compromise in the patient's medical care. Late signature. ANGELES SMALL Feb 04, 2025 11:20 DARIUSZ GAMINO MD Feb 05, 2025 10:17
[2025-02-04] MEDS: PANTOPRAZOLE 40 MG/10 ML VIAL INJ IV SCH (11:51)
[2025-02-04] MEDS: THIAMINE HCL 100 MG TAB PO SCH (11:51)
[2025-02-04 12:45] VITALS: BP 101/66; PULSE 83; RESP 18; TEMP 97.5; O2SAT 95
[2025-02-04] MEDS ORDERED: MET500T PO (13:10)
[2025-02-04] MEDS ORDERED: IBUP-1453 PO (13:10)
[2025-02-04] MEDS ORDERED: CEFP200T15 PO (13:10)
[2025-02-04] MEDS ORDERED: PANT40T PO (13:10)
[2025-02-04] MEDS ORDERED: KETAMINE 50mg/ML 10ml Vial (500mg/10ml) IV ONE (15:59)
== END 2025-02-04 16:00 | disposition home or self-care (01) | DRG 254 ==
LOC: ER 12:16 → OVERFLOW 16:17 → EAST 02-03 02:00
PROVIDERS: ADMIT Internal Medicine; ATTEND Internal Medicine
PROC: 0DJD8ZZ Inspection of Lower Intestinal Tract, Via Natural or Artificial Opening Endoscopic (ICD-10-PCS; principal; 2025-02-04 09:47)
DX: K62.89 Other specified diseases of anus and rectum (principal); R16.0 Hepatomegaly, not elsewhere classified; N26.1 Atrophy of kidney (terminal); K76.0 Fatty (change of) liver, not elsewhere classified; R74.01 Elevation of levels of liver transaminase levels; K52.9 Noninfective gastroenteritis and colitis, unspecified; K64.8 Other hemorrhoids; R30.0 Dysuria; Z87.891 Personal history of nicotine dependence
CPT/HCPCS: 36415; 45378; 71045; 74177; 80048; 80053; 80074; 80076; 80307; 80320; 81001; 82306; 82607; 82746; 83036; 85014; 85018; 85025; 85610; 85730; 86850; 86900; 86901; 87045; 87086; 87177; 87427; 87493; 96365; G0378; J2250; J2470; J2704; J3490